=== PATIENT | female | born 1995 | race Two or more races ===

== ENCOUNTER 2017-09-16 15:44 | Emergency (ER) | payer OTHER ==
[2017-09-16 15:49] VITALS: BP 103/52
[2017-09-16] MEDS ORDERED: BUTALB/ACETAMINOPHEN/CAFFEINE 1 TAB EACH PO ONE (17:33)
[2017-09-16] MEDS ORDERED: ONDANSETRON HCL 8 MG TABLET PO ONE (17:34)
--- NOTE | 2017-09-16 17:50 | ER Document Report ---
ED Medical Screen (RME) - General Chief Complaint: Headache Stated Complaint: HEADACHE Time Seen by Provider: 09/16/17 17:21 Notes: 21 yo healthy female c/o frontal headache since hitting her head yesterday. pt reports she was kneeling, cleaning the floor, raised up and hit the back of her head on the counter. no LOC. no vomiting. + nausea. no hx/o previous head injury or concussion. TRAVEL OUTSIDE OF THE [place] IN LAST 30 DAYS: No - HPI Onset: Yesterday Onset/Duration: Gradual, Persistent Quality of pain: Throbbing Associated Symptoms: Dizzy/lightheaded, Headache, Nausea. denies: Fever, Vomiting Exacerbated by: Denies Relieved by: Denies Similar symptoms previously: No Recently seen / treated by doctor: No - Related Data Allergies/Adverse Reactions: shellfish derived Allergy (Verified 09/16/17 16:40) Past Medical History - General Information source: Patient - Social History Chew tobacco use (# tins/day): No Frequency of alcohol use: None Drug Abuse: None Lives with: Family Family history: Reviewed & Not Pertinent - Medical History Medical History: Negative Pulmonary Medical History: Reports: Hx Asthma Renal/ Medical History: Denies: Hx Peritoneal Dialysis Review of Systems - Review of Systems Constitutional: See HPI EENT: No symptoms reported Cardiovascular: No symptoms reported Respiratory: No symptoms reported Gastrointestinal: No symptoms reported Genitourinary: No symptoms reported Female Genitourinary: No symptoms reported Musculoskeletal: No symptoms reported Skin: No symptoms reported Hematologic/Lymphatic: No symptoms reported Neurological/Psychological: No symptoms reported Physical Exam - Vital signs Vitals: Temp Pulse Resp BP Pulse Ox 98.7 F 49 L 16 103/52 L 100 09/16/17 15:48 09/16/17 15:48 09/16/17 15:48 09/16/17 15:48 09/16/17 15:48 Interpretation: Normal - General General appearance: Appears well, Alert - HEENT Head: Normocephalic, Tenderness - posterior scalp tender. no hematoma palpated Eyes: Normal Conjunctiva: Normal Extraocular movements intact: Yes Pupils: PERRL Tympanic membrane: Normal Mucous membranes: Moist Pharynx: Normal Neck: Normal, Supple - mild right suboccipital trapezius tenderness - Respiratory Respiratory status: No respiratory distress Chest status: Nontender Breath sounds: Normal Chest palpation: Normal - Cardiovascular Rhythm: Regular Heart sounds: Normal auscultation Murmur: No - Abdominal Inspection: Normal Distension: No distension Bowel sounds: Normal Tenderness: Nontender Organomegaly: No organomegaly - Back Back: Normal, Nontender - Extremities General upper extremity: Normal inspection, Nontender, Normal color, Normal ROM , Normal temperature General lower extremity: Normal inspection, Nontender, Normal color, Normal ROM , Normal temperature, Normal weight bearing. No: Tushar's sign - Neurological Neuro grossly intact: Yes Cognition: Normal Orientation: AAOx4 [place] Coma Scale Eye Opening: Spontaneous [place] Coma Scale Verbal: Oriented [place] Coma Scale Motor: Obeys Commands [place] Coma Scale Total: 15 Speech: Normal Motor strength normal: LUE, RUE, LLE, RLE Sensory: Normal - Psychological Associated symptoms: Normal affect, Normal mood - Skin Skin Temperature: Warm Skin Moisture: Dry Skin Color: Normal Course - Re-evaluation Re-evalutation: 09/16/17 18:22 pt is neurologically intact. no focal deficit. no indication for head CT at this time. pt is tolerating po and independently ambulatory. head injury precautions reviewed with pt and spouse, home care, PCM follow up and ED return precautions reviewed. pt agreeble with plan and stable for discharge - Vital Signs Vital signs: Temp Pulse Resp BP Pulse Ox 98.7 F 49 L 16 103/52 L 100 09/16/17 15:48 09/16/17 15:48 09/16/17 15:48 09/16/17 15:48 09/16/17 15:48 Doctor's Discharge - Discharge Clinical Impression: Head injury Qualifiers: Encounter type: initial encounter Qualified Code(s): S09.90XA - Unspecified injury of head, initial encounter Headache Qualifiers: Headache type: unspecified Headache chronicity pattern: acute headache Intractability: not intractable Qualified Code(s): R51 - Headache Condition: Stable Disposition: HOME, SELF-CARE Instructions: Antinausea Medication ([facility]), Headache ([facility]), Post-Concussion Syndrome ([facility]) Additional Instructions: please take medications as prescribed rest and hydrate no high impact activity for next 48 hours head injury precautions as discussed follow up with primary care return to ER for any worsening Prescriptions: Butalb/Acetaminophen/Caffeine [Fioricet 50-300-40 mg Capsule] 1 - 2 cap PO Q4 PRN #20 cap PRN Reason: Ondansetron HCl [Zofran 8 mg Tablet] 8 mg PO Q6H PRN #20 tablet PRN Reason:
== END 2017-09-16 18:40 | disposition home or self-care (01) ==
LOC: ER 15:44
DX: S09.90XA Unspecified injury of head, initial encounter (principal); W22.09XA Striking against other stationary object, initial encounter; Y93.E5 Activity, floor mopping and cleaning; R51 Headache; R11.0 Nausea; R42 Dizziness and giddiness; Z91.013 Allergy to seafood; J45.909 Unspecified asthma, uncomplicated
CPT/HCPCS: 99284; J3490; S0119